=== PATIENT | female | born 1965 | race Caucasian/White ===

== ENCOUNTER 2020-12-23 11:00 | Emergency (ER) | payer OTHER ==
[2020-12-23 11:22] VITALS: TEMP 98.4
[2020-12-23 11:48] LABS: Basophils # (A) 0.1 k/uL (0-0.2); Basophils % (A) 1 %; Eosinophils # (A) 0.1 k/uL (0-0.7); Eosinophils % (A) 2 %; HCT 46.2 % (34.0-46.0); HGB 15.7 gm/dL (11.4-16.0); Lymphocytes # (A) 1.6 k/uL (1.0-4.8); Lymphocytes % (A) 26 %; MCH 31.4 pg (25.0-35.0); MCHC 33.9 g/dL (31.0-37.0); MCV 92.6 fL (80.0-100.0); Mean Platelet Volume 7.8; Monocytes # (A) 0.2 k/uL (0-1.0); Monocytes % (A) 4 %; Neutrophils % (A) 66 %; Platelet Count 303 k/uL (150-450); RBC 4.99 m/uL (3.80-5.40); RDW 13.3 % (11.5-15.5)
[2020-12-23] MEDS ORDERED: ONDANSETRON 4 MG/2 ML VIAL IVP STA (11:50)
[2020-12-23] MEDS ORDERED: MORPHINE SULFATE 4 MG/ML SYRINGE IV STA (11:50)
[2020-12-23] MEDS ORDERED: SODIUM CHLORIDE 0.9% 1,000 ML IV STA (11:50)
[2020-12-23 11:55] LABS: ALT 28 U/L (4-34); AST 33 U/L (14-36); African American GFR (CKD) >90 (>60 ml/min/1.73 sqM); Alkaline Phosphatase 113 U/L (38-126); Anion Gap 9 mmol/L; Blood Urea Nitrogen 13 mg/dL (7-17); Calcium 11.7 mg/dL (8.4-10.2); Carbon Dioxide 20 mmol/L (22-30); Chloride 109 mmol/L (98-107); Glucose 108 mg/dL (74-99); Lipase 209 U/L (23-300); Non-African American GFR(CKD) >90 (>60 ml/min/1.73 sqM); Potassium 4.9 mmol/L (3.5-5.1); Sodium 138 mmol/L (137-145); Total Bilirubin 0.4 mg/dL (0.2-1.3)
--- NOTE | 2020-12-23 11:57 | ED ---
General Adult HPI - General Chief complaint: Abdominal Pain Stated complaint: Kidney Stones Time Seen by Provider: 12/23/20 11:28 Source: patient Mode of arrival: ambulatory Limitations: no limitations - History of Present Illness Initial comments: Dictation was produced using [employer] dictation software. please excuse any grammatical, word or spelling errors. Chief Complaint: 55-year-old female presents with suprapubic pain and urinary symptoms History of Present Illness: 55-year-old female she states for the last 7 days she's had suprapubic pain, flank pain and urinary symptoms. Patient states that she does not get UTIs often. States that she does have some burning on urination. She also has urinary hesitancy and frequency. Patient was seen for similar issues in [place] emergency room. No recent antibiotics. Denies any constitutional symptoms. Mild nausea no vomiting. She has a history of total hysterectomy The ROS documented in this emergency department record has been reviewed and confirmed by me. Those systems with pertinent positive or negative responses have been documented in the HPI. All other systems are other negative and/or noncontributory. PHYSICAL EXAM: General Impression: Alert and oriented x3, not in acute distress HEENT: Normocephalic atraumatic, extra-ocular movements intact, pupils equal and reactive to light bilaterally, mucous membranes moist. Cardiovascular: Heart regular rate and rhythm Chest: Able to complete full sentences, no retractions, no tachypnea Abdomen: abdomen soft, mild tenderness to the suprapubic area, no CVA tenderness, non-distended, no organomegaly Musculoskeletal: Pulses present and equal in all extremities, no peripheral edema Motor: no focal deficits noted Neurological: CN II-XII grossly intact, no focal motor or sensory deficits noted Skin: Intact with no visualized rashes Psych: Normal affect and mood ED course: 55-year-old female presents to the emergency department for suprapubic pain and urinary symptoms. Vital signs upon arrival shows findings within acceptable limits. Laboratory evaluation obtained. CBC, metabolic panel is unremarkable. Abdominal labs negative. Urinalysis is negative. Patient reevaluated at bedside at 1 PM found to be in stable medical condition. Patient is well- appearing at the bedside. No life-threatening processes identified. Patient given referral to primary care doctor in general surgeon. Patient told that she may benefit from outpatient exploratory laparoscopy. - Related Data Allergies Allergy/AdvReac Type Severity Reaction Status Date / Time aspirin Allergy Anaphylaxis Verified 12/23/20 11:19 ibuprofen [From Motrin] Allergy Anaphylaxis Verified 12/23/20 11:19 naproxen Allergy Anaphylaxis Verified 12/23/20 11:19 Review of Systems ROS Statement: Those systems with pertinent positive or pertinent negative responses have been documented in the HPI. ROS Other: All systems not noted in ROS Statement are negative. Past Medical History Additional Past Medical History / Comment(s): kidney stones History of Any Multi-Drug Resistant Organisms: None Reported Past Surgical History: Section, Hysterectomy, Tubal Ligation Additional Past Surgical History / Comment(s): 14 laproscopies Past Psychological History: Bipolar Smoking Status: Current every day smoker Past Alcohol Use History: None Reported Past Drug Use History: None Reported General Exam Limitations: no limitations Course Vital Signs 12/23/20 11:19 Temperature 98.4 F Pulse Rate 105 H Respiratory 18 Rate Blood Pressure 164/124 O2 Sat by Pulse 97 Oximetry Medical Decision Making - Lab Data Result diagrams: 12/23/20 11:38 12/23/20 11:38 Lab Results 12/23/20 12/23/20 12/23/20 Range/Units 11:38 11:38 11:38 WBC 6.0 (3.8-10.6) k/uL RBC 4.99 (3.80-5.40) m/uL Hgb 15.7 (11.4-16.0) gm/dL Hct 46.2 H (34.0-46.0) % MCV 92.6 (80.0-100.0) fL MCH 31.4 (25.0-35.0) pg MCHC 33.9 (31.0-37.0) g/dL RDW 13.3 (11.5-15.5) % Plt Count 303 (150-450) k/uL MPV 7.8 Neutrophils % 66 % Lymphocytes % 26 % Monocytes % 4 % Eosinophils % 2 % Basophils % 1 % Neutrophils # 4.0 (1.3-7.7) k/uL Lymphocytes # 1.6 (1.0-4.8) k/uL Monocytes # 0.2 (0-1.0) k/uL Eosinophils # 0.1 (0-0.7) k/uL Basophils # 0.1 (0-0.2) k/uL Sodium 138 (137-145) mmol/L Potassium 4.9 (3.5-5.1) mmol/L Chloride 109 H (98-107) mmol/L Carbon Dioxide 20 L (22-30) mmol/L Anion Gap 9 mmol/L BUN 13 (7-17) mg/dL Creatinine 0.74 (0.52-1.04) mg/dL Est GFR (CKD-EPI)AfAm >90 (>60 ml/min/1.73 sqM) Est GFR (CKD-EPI)NonAf >90 (>60 ml/min/1.73 sqM) Glucose 108 H (74-99) mg/dL Calcium 11.7 H (8.4-10.2) mg/dL Total Bilirubin 0.4 (0.2-1.3) mg/dL AST 33 (14-36) U/L ALT 28 (4-34) U/L Alkaline Phosphatase 113 (38-126) U/L Total Protein 8.0 (6.3-8.2) g/dL Albumin 5.0 (3.5-5.0) g/dL Lipase 209 (23-300) U/L Urine Color Yellow Urine Appearance Turbid H (Clear) Urine pH 7.5 (5.0-8.0) Ur Specific [place] 1.018 (1.001-1.035) Urine Protein Negative (Negative) Urine Glucose (UA) Negative (Negative) Urine Ketones Negative (Negative) Urine Blood Negative (Negative) Urine Nitrite Negative (Negative) Urine Bilirubin Negative (Negative) Urine Urobilinogen <2.0 (<2.0) mg/dL Ur Leukocyte Esterase Negative (Negative) Urine RBC 2 (0-5) /hpf Amorphous Sediment Moderate H (None) /hpf Urine Mucus Rare H (None) /hpf Disposition Clinical Impression: Abdominal pain Disposition: HOME SELF-CARE Condition: Good Instructions (If sedation given, give patient instructions): Abdominal Pain (ED) Is patient prescribed a controlled substance at d/c from ED?: No Referrals: Tamy Crews MD [STAFF PHYSICIAN] - 1-2 days Modesto Kwong MD [Medical Doctor] - 1-2 days
[2020-12-23 12:02] LABS: Amorphous Sediment,Urine Moderate /hpf; Appearance,Urine Turbid (Clear); Bilirubin,Urine Negative (Negative); Blood,Urine Negative (Negative); Color,Urine Yellow; Glucose,Urine (UA) Negative (Negative); Ketones,Urine Negative (Negative); Leukocyte Esterase,Urine Negative (Negative); Mucus,Urine Rare /hpf; Nitrite,Urine Negative (Negative); PH, Urine 7.5 (5.0-8.0); Protein,Urine Negative (Negative); RBC,Urine 2 /hpf (0-5); Specific Gravity,Urine 1.018 (1.001-1.035); Urobilinogen,Urine <2.0 mg/dL (<2.0)
[2020-12-23] MEDS ORDERED: HYDROmorphone 0.5 MG/0.5 ML SYRINGE IVP STA (12:50)
[2020-12-23] MEDS ORDERED: ACET/COD 300 MG/30 MG STARTER PACK 6 TAB BTL PO STA (13:21)
[2020-12-23 13:30] VITALS: BP 139/92; PULSE 71; RESP 16
== END 2020-12-23 13:30 | disposition home or self-care (01) ==
LOC: EC 11:00
DX: R10.2 Pelvic and perineal pain (principal); R11.0 Nausea; R39.11 Hesitancy of micturition; R35.0 Frequency of micturition; F17.200 Nicotine dependence, unspecified, uncomplicated; Z87.442 Personal history of urinary calculi; Z88.6 Allergy status to analgesic agent; Z90.710 Acquired absence of both cervix and uterus
CPT/HCPCS: 99284 ×2; 96374 ×2; 96375 ×2; 96361 ×2; 36415; 80053; 83690; 85025; 81001; J2270; J2405; J1170

== ENCOUNTER 2021-05-22 09:13 | Emergency (ER) | payer OTHER ==
--- NOTE | 2021-05-22 09:42 | ED ---
General Adult HPI - General Chief complaint: Abdominal Pain Stated complaint: Abd pain Time Seen by Provider: 05/22/21 09:19 Source: patient Mode of arrival: ambulatory Limitations: no limitations - History of Present Illness Initial comments: Dictation was produced using [employer] dictation software. please excuse any grammatical, word or spelling errors. Chief Complaint: 55-year-old female past medical history of kidney stones presen ts to the emergency department for dysuria and right-sided flank pain History of Present Illness: 55-year-old female she has past medical history of hysterectomy. She states over the last several days she's been having urinary symptoms including urinary hesitancy, urgency and dysuria. She states that her urine is malodorous. She does have mild right-sided flank pain. Patient states she is not sexually active. Patient never had a UTI in the past. Denies any vaginal discharge. No constitutional symptoms. she has history of total abdominal hysterectomy and bilateral salpingectomy and ooophorectomy The ROS documented in this emergency department record has been reviewed and confirmed by me. Those systems with pertinent positive or negative responses have been documented in the HPI. All other systems are other negative and/or noncontributory. PHYSICAL EXAM: General Impression: Alert and oriented x3, not in acute distress HEENT: Normocephalic atraumatic, extra-ocular movements intact, pupils equal and reactive to light bilaterally, mucous membranes moist. Cardiovascular: Heart regular rate and rhythm Chest: Able to complete full sentences, no retractions, no tachypnea Abdomen: abdomen soft, non-tender, non-distended, no organomegaly Musculoskeletal: Pulses present and equal in all extremities, no peripheral edema Motor: no focal deficits noted Neurological: CN II-XII grossly intact, no focal motor or sensory deficits noted Skin: Intact with no visualized rashes Psych: Normal affect and mood ED course: 55-year-old female presents emergency department for urinary sy mptoms. Vital Signs upon arrival are within acceptable limits. Postvoid residual is 60 mL a urine Laboratory evaluation obtained. CBC, metabolic panel is unremarkable. Urinalysis negative for urinary tract infection. Pelvic exam performed showing some erythema and cheesy white discharge. It was not malodorous. Clinical presentation concerning for yeast vaginitis. Patient given 1 dose of Diflucan. She is given some by mouth analgesia is to go home with advised to follow-up with PCP. She is given referral. - Related Data Home Medications Medication Instructions Recorded Confirmed Acetaminophen Tab [Tylenol] 325 mg PO Q4H PRN 05/22/21 05/22/21 Allergies Allergy/AdvReac Type Severity Reaction Status Date / Time aspirin Allergy Anaphylaxis Verified 05/22/21 10:16 ibuprofen [From Motrin] Allergy Anaphylaxis Verified 05/22/21 10:16 naproxen Allergy Anaphylaxis Verified 05/22/21 10:16 Review of Systems ROS Statement: Those systems with pertinent positive or pertinent negative responses have been documented in the HPI. ROS Other: All systems not noted in ROS Statement are negative. Past Medical History Additional Past Medical History / Comment(s): kidney stones History of Any Multi-Drug Resistant Organisms: None Reported Past Surgical History: Section, Hysterectomy, Tubal Ligation Additional Past Surgical History / Comment(s): 14 laproscopies Past Psychological History: Bipolar Smoking Status: Current every day smoker Past Alcohol Use History: Occasional Past Drug Use History: None Reported General Exam Limitations: no limitations Course Vital Signs 05/22/21 05/22/21 05/22/21 09:16 10:06 11:33 Temperature 98.4 F 97.9 F Pulse Rate 87 79 Respiratory 20 14 Rate Blood Pressure 186/107 185/119 170/92 O2 Sat by Pulse 98 97 Oximetry Medical Decision Making - Lab Data Result diagrams: 05/22/21 10:05 05/22/21 10:05 Lab Results 05/22/21 05/22/21 05/22/21 Range/Units 10:05 10:05 11:33 WBC 5.5 (3.8-10.6) k/uL RBC 4.77 (3.80-5.40) m/uL Hgb 15.3 (11.4-16.0) gm/dL Hct 46.2 H (34.0-46.0) % MCV 96.9 (80.0-100.0) fL MCH 32.1 (25.0-35.0) pg MCHC 33.2 (31.0-37.0) g/dL RDW 13.3 (11.5-15.5) % Plt Count 288 (150-450) k/uL MPV 7.5 Neutrophils % 67 % Lymphocytes % 25 % Monocytes % 4 % Eosinophils % 1 % Basophils % 1 % Neutrophils # 3.7 (1.3-7.7) k/uL Lymphocytes # 1.4 (1.0-4.8) k/uL Monocytes # 0.2 (0-1.0) k/uL Eosinophils # 0.1 (0-0.7) k/uL Basophils # 0.1 (0-0.2) k/uL Sodium 138 (137-145) mmol/L Potassium 4.3 (3.5-5.1) mmol/L Chloride 107 (98-107) mmol/L Carbon Dioxide 22 (22-30) mmol/L Anion Gap 9 mmol/L BUN 16 (7-17) mg/dL Creatinine 0.76 (0.52-1.04) mg/dL Est GFR (CKD-EPI)AfAm >90 (>60 ml/min/1.73 sqM) Est GFR (CKD-EPI)NonAf >90 (>60 ml/min/1.73 sqM) Glucose 118 H (74-99) mg/dL Calcium 11.6 H (8.4-10.2) mg/dL Urine Color Yellow Urine Appearance Clear (Clear) Urine pH 6.0 (5.0-8.0) Ur Specific [place] 1.022 (1.001-1.035) Urine Protein Negative (Negative) Urine Glucose (UA) Negative (Negative) Urine Ketones Negative (Negative) Urine Blood Negative (Negative) Urine Nitrite Negative (Negative) Urine Bilirubin Negative (Negative) Urine Urobilinogen <2.0 (<2.0) mg/dL Ur Leukocyte Esterase Negative (Negative) Disposition Clinical Impression: Yeast vaginitis Disposition: HOME SELF-CARE Condition: Fair Instructions (If sedation given, give patient instructions): Vaginitis (ED) Is patient prescribed a controlled substance at d/c from ED?: No Referrals: Tamy Crews MD [STAFF PHYSICIAN] - 1-2 days
[2021-05-22 10:13] VITALS: PULSE 79; RESP 14; TEMP 97.9
[2021-05-22 10:15] LABS: Basophils # (A) 0.1 k/uL (0-0.2); Basophils % (A) 1 %; Eosinophils # (A) 0.1 k/uL (0-0.7); Eosinophils % (A) 1 %; HCT 46.2 % (34.0-46.0); HGB 15.3 gm/dL (11.4-16.0); Lymphocytes # (A) 1.4 k/uL (1.0-4.8); Lymphocytes % (A) 25 %; MCH 32.1 pg (25.0-35.0); MCHC 33.2 g/dL (31.0-37.0); MCV 96.9 fL (80.0-100.0); Mean Platelet Volume 7.5; Monocytes # (A) 0.2 k/uL (0-1.0); Monocytes % (A) 4 %; Neutrophils # (A) 3.7 k/uL (1.3-7.7); Neutrophils % (A) 67 %; Platelet Count 288 k/uL (150-450); RBC 4.77 m/uL (3.80-5.40); RDW 13.3 % (11.5-15.5); WBC 5.5 k/uL (3.8-10.6)
[2021-05-22 10:28] LABS: African American GFR (CKD) >90 (>60 ml/min/1.73 sqM); Anion Gap 9 mmol/L; Blood Urea Nitrogen 16 mg/dL (7-17); Calcium 11.6 mg/dL (8.4-10.2); Carbon Dioxide 22 mmol/L (22-30); Chloride 107 mmol/L (98-107); Glucose 118 mg/dL (74-99); Non-African American GFR(CKD) >90 (>60 ml/min/1.73 sqM); Potassium 4.3 mmol/L (3.5-5.1); Sodium 138 mmol/L (137-145)
[2021-05-22] MEDS ORDERED: SODIUM CHLORIDE 0.9% 1,000 ML IV STA (10:42)
[2021-05-22] MEDS ORDERED: MORPHINE SULFATE 4 MG/ML SYRINGE IVP STA (10:42)
[2021-05-22 11:34] VITALS: BP 170/92
[2021-05-22 11:37] LABS: Appearance,Urine Clear (Clear); Bilirubin,Urine Negative (Negative); Blood,Urine Negative (Negative); Color,Urine Yellow; Glucose,Urine (UA) Negative (Negative); Ketones,Urine Negative (Negative); Leukocyte Esterase,Urine Negative (Negative); Nitrite,Urine Negative (Negative); Protein,Urine Negative (Negative); Specific Gravity,Urine 1.022 (1.001-1.035); Urobilinogen,Urine <2.0 mg/dL (<2.0)
[2021-05-22] MEDS ORDERED: FLUCONAZOLE 150 MG TAB PO STA (12:21)
[2021-05-22] MEDS ORDERED: ACET/COD 300 MG/30 MG STARTER PACK 6 TAB BTL PO STA (12:22)
== END 2021-05-22 13:41 | disposition home or self-care (01) ==
LOC: EC 09:13
DX: B37.3 Candidiasis of vulva and vagina (principal); F17.200 Nicotine dependence, unspecified, uncomplicated; Z88.6 Allergy status to analgesic agent
CPT/HCPCS: 36415; 80048; 85025; 81003; 99284; 96374; 96361; J2270

== ENCOUNTER 2021-08-02 13:23 | Emergency (ER) | payer OTHER ==
[2021-08-02 14:00] VITALS: BP 157/103; PULSE 98; RESP 18; TEMP 98.4
--- NOTE | 2021-08-02 14:29 | XR ---
EXAMINATION TYPE: XR chest 2V DATE OF EXAM: 08/02/2021 COMPARISON: NONE HISTORY: Shortness of breath TECHNIQUE: Frontal and lateral views of the chest are obtained. FINDINGS: Scattered senescent parenchymal changes noted. Hyperinflation compatible with COPD. No evidence for infiltrate. No evidence for atelectasis. Heart size is stable. Mediastinal structures are stable and grossly unremarkable. No evidence for hilar prominence. Degenerative changes dorsal spine. IMPRESSION: 1. No evidence for acute pulmonary disease.
--- NOTE | 2021-08-02 14:29 | ED ---
URI HPI - General Chief Complaint: Upper Respiratory Infection Stated Complaint: Asthma, YOSELYN Time Seen by Provider: 08/02/21 14:06 Source: patient, RN notes reviewed Mode of arrival: ambulatory Limitations: no limitations - History of Present Illness Initial Comments: 55-year-old female presents emergency Department chief complaint cough congestion. Patient states she's been sick last few days. Patient states that she does have slight nausea and does have productive cough. Patient has meant she has asthma COPD. Patient states her medication is old for her nebulizer. Patient denies any known fevers chills no night sweats no sick contacts patient offers no complaints. - Related Data Home Medications Medication Instructions Recorded Confirmed Acetaminophen Tab [Tylenol] 325 mg PO Q4H PRN 05/22/21 05/22/21 Previous Rx's Medication Instructions Recorded Albuterol Nebulized [Ventolin 2.5 mg INHALATION Q4H PRN #75 ml 08/02/21 Nebulized] Albuterol Sulfate [Proair Hfa] 1 - 2 puff INHALATION Q4HR PRN 08/02/21 #8.5 gm Azithromycin [Zithromax Z-pack (6 0 mg PO DIRECTED #1 packet 08/02/21 tabs)] predniSONE 50 mg PO DAILY #5 tab 08/02/21 Allergies Allergy/AdvReac Type Severity Reaction Status Date / Time aspirin Allergy Anaphylaxis Verified 08/02/21 14:00 ibuprofen [From Motrin] Allergy Anaphylaxis Verified 08/02/21 14:00 naproxen Allergy Anaphylaxis Verified 08/02/21 14:00 Review of Systems ROS Statement: Those systems with pertinent positive or pertinent negative responses have been documented in the HPI. ROS Other: All systems not noted in ROS Statement are negative. Past Medical History Additional Past Medical History / Comment(s): kidney stones History of Any Multi-Drug Resistant Organisms: None Reported Past Surgical History: Section, Hysterectomy, Tubal Ligation Additional Past Surgical History / Comment(s): 14 laproscopies Past Psychological History: Bipolar Smoking Status: Current every day smoker Past Alcohol Use History: Occasional Past Drug Use History: None Reported General Exam Limitations: no limitations General appearance: alert, in no apparent distress Head exam: Present: atraumatic, normocephalic, normal inspection Eye exam: Present: normal appearance, PERRL, EOMI. Absent: scleral icterus, conjunctival injection, periorbital swelling ENT exam: Present: normal exam, mucous membranes moist Neck exam: Present: normal inspection. Absent: tenderness, meningismus, lymphadenopathy Respiratory exam: Present: wheezes, rhonchi. Absent: normal lung sounds bilaterally, respiratory distress, rales, stridor Cardiovascular Exam: Present: regular rate, normal rhythm, normal heart sounds. Absent: systolic murmur, diastolic murmur, rubs, gallop, clicks GI/Abdominal exam: Present: soft, normal bowel sounds. Absent: distended, tenderness, guarding, rebound, rigid Course Vital Signs 08/02/21 13:58 Temperature 98.4 F Pulse Rate 98 Respiratory 18 Rate Blood Pressure 157/103 O2 Sat by Pulse 97 Oximetry Medical Decision Making - Medical Decision Making X-ray, influenza testing and COVID-19 testing are negative. Patient has mild COPD exacerbation patient discharged with steroids,] breathing treatments return parameters discussed. - Lab Data Lab Results 08/02/21 08/02/21 Range/Units 14:03 14:03 Coronavirus (PCR) Not Detected (Not Detectd) Influenza Type A RNA Not Detected (Not Detectd) Influenza Type B (PCR) Not Detected (Not Detectd) Disposition Clinical Impression: Asthmatic bronchitis, Acute upper respiratory infection Disposition: HOME SELF-CARE Condition: Stable Instructions (If sedation given, give patient instructions): Upper Respiratory Infection (ED) Additional Instructions: Please return to the Emergency Department if symptoms worsen or any other concerns. Prescriptions: predniSONE 50 mg PO DAILY #5 tab Albuterol Sulfate [Proair Hfa] 1 - 2 puff INHALATION Q4HR PRN #8.5 gm PRN Reason: difficulty in breathing Albuterol Nebulized [Ventolin Nebulized] 2.5 mg INHALATION Q4H PRN #75 ml PRN Reason: difficulty in breathing Azithromycin [Zithromax Z-pack (6 tabs)] 0 mg PO DIRECTED #1 packet Is patient prescribed a controlled substance at d/c from ED?: No Referrals: None,Stated [Primary Care Provider] - 1-2 days Time of Disposition: 14:36
== END 2021-08-02 15:01 | disposition home or self-care (01) ==
LOC: EC 13:23
DX: J45.909 Unspecified asthma, uncomplicated (principal); J06.9 Acute upper respiratory infection, unspecified; F17.200 Nicotine dependence, unspecified, uncomplicated; Z20.822 Contact with and (suspected) exposure to COVID-19; Z88.6 Allergy status to analgesic agent
CPT/HCPCS: 71046; 87502; 87635; 99284

== ENCOUNTER 2021-10-04 13:17 | Inpatient (IN) | payer OTHER ==
[2021-10-04] MEDS ORDERED: SODIUM CHLORIDE 0.9% 1,000 ML IV STA (14:16)
[2021-10-04] MEDS ORDERED: diphenhydrAMINE 50 MG/ML 1 ML VIAL IVP STA (14:17)
[2021-10-04] MEDS ORDERED: METOCLOPRAMIDE 5 MG/ML 2 ML VIAL IVP STA (14:17)
[2021-10-04 14:37] LABS: Basophils # (A) 0.1 k/uL (0-0.2); Basophils % (A) 2 %; Eosinophils # (A) 0.1 k/uL (0-0.7); Eosinophils % (A) 2 %; HCT 40.5 % (34.0-46.0); HGB 13.4 gm/dL (11.4-16.0); Lymphocytes # (A) 1.4 k/uL (1.0-4.8); Lymphocytes % (A) 29 %; MCH 31.9 pg (25.0-35.0); MCHC 33.2 g/dL (31.0-37.0); MCV 96.2 fL (80.0-100.0); Mean Platelet Volume 7.5; Monocytes # (A) 0.3 k/uL (0-1.0); Monocytes % (A) 5 %; Neutrophils # (A) 2.9 k/uL (1.3-7.7); Neutrophils % (A) 61 %; Platelet Count 271 k/uL (150-450); RDW 12.9 % (11.5-15.5); WBC 4.8 k/uL (3.8-10.6)
--- NOTE | 2021-10-04 14:42 | ED ---
General Adult HPI - General Chief complaint: Headache Stated complaint: Migraine/Syncope Time Seen by Provider: 10/04/21 14:00 Source: patient, RN notes reviewed Mode of arrival: ambulatory Limitations: no limitations - History of Present Illness Initial comments: Patient is a pleasant 55-year-old female presenting to the emergency Department with headache. Onset of symptoms was around 10 days ago. Gradual onset. Headache is now becoming severe. Headache is diffuse. Patient does have nausea and has vomited several times. Patient has photophobia. No history of chronic headaches. Patient believes she has had possibly several episodes of syncope associated with this. Patient feels a little bit off balance. - Related Data Home Medications Medication Instructions Recorded Confirmed Acetaminophen Tab [Tylenol Tab] 1,000 mg PO Q6HR PRN 10/04/21 10/04/21 Albuterol Nebulized [Ventolin 2.5 mg INHALATION RT-Q4H PRN 10/04/21 10/04/21 Nebulized] Albuterol Sulfate [Proair Hfa] 1 - 2 puff INHALATION RT-Q4H PRN 10/04/21 10/04/21 Allergies Allergy/AdvReac Type Severity Reaction Status Date / Time aspirin Allergy Anaphylaxis Verified 10/04/21 16:39 ibuprofen [From Motrin] Allergy Anaphylaxis Verified 10/04/21 16:39 naproxen Allergy Anaphylaxis Verified 10/04/21 16:39 Review of Systems ROS Statement: Those systems with pertinent positive or pertinent negative responses have been documented in the HPI. ROS Other: All systems not noted in ROS Statement are negative. Constitutional: Denies: fever Eyes: Reports: other (Some blurred vision). Denies: eye pain ENT: Denies: ear pain Respiratory: Denies: cough, dyspnea Cardiovascular: Denies: chest pain Endocrine: Denies: fatigue Gastrointestinal: Reports: nausea, vomiting. Denies: abdominal pain Genitourinary: Denies: dysuria Musculoskeletal: Denies: back pain Skin: Denies: rash Neurological: Reports: headache. Denies: weakness, numbness, paresthesias, conf usion Past Medical History Additional Past Medical History / Comment(s): kidney stones History of Any Multi-Drug Resistant Organisms: None Reported Past Surgical History: Section, Hysterectomy, Tubal Ligation Additional Past Surgical History / Comment(s): 14 laproscopies Past Psychological History: Bipolar Smoking Status: Current every day smoker Past Alcohol Use History: Occasional Past Drug Use History: None Reported General Exam Limitations: no limitations General appearance: alert, in no apparent distress Head exam: Present: normocephalic Eye exam: Present: normal appearance, PERRL, EOMI ENT exam: Present: normal oropharynx Neck exam: Present: normal inspection Respiratory exam: Present: normal lung sounds bilaterally Cardiovascular Exam: Present: regular rate, normal rhythm GI/Abdominal exam: Present: soft. Absent: tenderness Extremities exam: Present: normal inspection Neurological exam: Present: alert, oriented X3, CN II-XII intact. Absent: motor sensory deficit Expanded Neurological exam: Present: protecting the airway Speech: Present: fluid speech Cranial nerves: EOM's Intact: Normal, Facial Sensation: Normal Sensory exam: Upper Extremity Light Touch: Normal, Lower Extremity Light Touch: Normal Motor strength exam: RUE: 5, LUE: 5, RLE: 5, LLE: 5 Eye Response: (4) open spontaneously Motor Response: (6) obeys commands Verbal Response: (5) oriented Psychiatric exam: Present: normal affect, normal mood Skin exam: Present: normal color Course Vital Signs 10/04/21 13:17 Temperature 98.7 F Pulse Rate 89 Respiratory 18 Rate Blood Pressure 163/110 O2 Sat by Pulse 98 Oximetry Medical Decision Making - Medical Decision Making Patient reevaluated. Patient does have improvement of her symptoms. Patient updated on results and plan. Case discussed with Dr. Vega, who will admit c [facility] observation call. - Lab Data Result diagrams: 10/04/21 14:24 10/04/21 14:24 Lab Results 10/04/21 10/04/21 10/04/21 Range/Units 14:24 14:24 14:24 WBC 4.8 (3.8-10.6) k/uL RBC 4.20 (3.80-5.40) m/uL Hgb 13.4 (11.4-16.0) gm/dL Hct 40.5 (34.0-46.0) % MCV 96.2 (80.0-100.0) fL MCH 31.9 (25.0-35.0) pg MCHC 33.2 (31.0-37.0) g/dL RDW 12.9 (11.5-15.5) % Plt Count 271 (150-450) k/uL MPV 7.5 Neutrophils % 61 % Lymphocytes % 29 % Monocytes % 5 % Eosinophils % 2 % Basophils % 2 % Neutrophils # 2.9 (1.3-7.7) k/uL Lymphocytes # 1.4 (1.0-4.8) k/uL Monocytes # 0.3 (0-1.0) k/uL Eosinophils # 0.1 (0-0.7) k/uL Basophils # 0.1 (0-0.2) k/uL PT 10.1 (9.0-12.0) sec INR 0.9 (<1.2) APTT 26.2 (22.0-30.0) sec Sodium 138 (137-145) mmol/L Potassium 4.1 (3.5-5.1) mmol/L Chloride 109 H (98-107) mmol/L Carbon Dioxide 22 (22-30) mmol/L Anion Gap 7 mmol/L BUN 18 H (7-17) mg/dL Creatinine 0.69 (0.52-1.04) mg/dL Est GFR (CKD-EPI)AfAm >90 (>60 ml/min/1.73 sqM) Est GFR (CKD-EPI)NonAf >90 (>60 ml/min/1.73 sqM) Glucose 93 (74-99) mg/dL Calcium 10.8 H (8.4-10.2) mg/dL Magnesium 2.0 (1.6-2.3) mg/dL Total Bilirubin 0.3 (0.2-1.3) mg/dL AST 26 (14-36) U/L ALT 21 (4-34) U/L Alkaline Phosphatase 109 (38-126) U/L Troponin I (0.000-0.034) ng/mL Total Protein 7.1 (6.3-8.2) g/dL Albumin 4.4 (3.5-5.0) g/dL Urine Color Urine Appearance (Clear) Urine pH (5.0-8.0) Ur Specific [place] (1.001-1.035) Urine Protein (Negative) Urine Glucose (UA) (Negative) Urine Ketones (Negative) Urine Blood (Negative) Urine Nitrite (Negative) Urine Bilirubin (Negative) Urine Urobilinogen (<2.0) mg/dL Ur Leukocyte Esterase (Negative) 10/04/21 10/04/21 Range/Units 14:24 14:32 WBC (3.8-10.6) k/uL RBC (3.80-5.40) m/uL Hgb (11.4-16.0) gm/dL Hct (34.0-46.0) % MCV (80.0-100.0) fL MCH (25.0-35.0) pg MCHC (31.0-37.0) g/dL RDW (11.5-15.5) % Plt Count (150-450) k/uL MPV Neutrophils % % Lymphocytes % % Monocytes % % Eosinophils % % Basophils % % Neutrophils # (1.3-7.7) k/uL Lymphocytes # (1.0-4.8) k/uL Monocytes # (0-1.0) k/uL Eosinophils # (0-0.7) k/uL Basophils # (0-0.2) k/uL PT (9.0-12.0) sec INR (<1.2) APTT (22.0-30.0) sec Sodium (137-145) mmol/L Potassium (3.5-5.1) mmol/L Chloride (98-107) mmol/L Carbon Dioxide (22-30) mmol/L Anion Gap mmol/L BUN (7-17) mg/dL Creatinine (0.52-1.04) mg/dL Est GFR (CKD-EPI)AfAm (>60 ml/min/1.73 sqM) Est GFR (CKD-EPI)NonAf (>60 ml/min/1.73 sqM) Glucose (74-99) mg/dL Calcium (8.4-10.2) mg/dL Magnesium (1.6-2.3) mg/dL Total Bilirubin (0.2-1.3) mg/dL AST (14-36) U/L ALT (4-34) U/L Alkaline Phosphatase (38-126) U/L Troponin I <0.012 (0.000-0.034) ng/mL Total Protein (6.3-8.2) g/dL Albumin (3.5-5.0) g/dL Urine Color Light Yellow Urine Appearance Clear (Clear) Urine pH 6.0 (5.0-8.0) Ur Specific [place] 1.023 (1.001-1.035) Urine Protein Negative (Negative) Urine Glucose (UA) Negative (Negative) Urine Ketones Negative (Negative) Urine Blood Negative (Negative) Urine Nitrite Negative (Negative) Urine Bilirubin Negative (Negative) Urine Urobilinogen <2.0 (<2.0) mg/dL Ur Leukocyte Esterase Negative (Negative) - Radiology Data Radiology results: report reviewed (CT brain and CTA revealed no acute process), image reviewed (Chest x-ray shows no acute process) Disposition Clinical Impression: Headache, Syncope Disposition: ADMITTED IP TO THIS HOSP Is patient prescribed a controlled substance at d/c from ED?: No Referrals: None,Stated [Primary Care Provider] - 1-2 days Time of Disposition: 16:51
[2021-10-04 14:47] LABS: ALT 21 U/L (4-34); AST 26 U/L (14-36); African American GFR (CKD) >90 (>60 ml/min/1.73 sqM); Albumin 4.4 g/dL (3.5-5.0); Alkaline Phosphatase 109 U/L (38-126); Anion Gap 7 mmol/L; Blood Urea Nitrogen 18 mg/dL (7-17); Calcium 10.8 mg/dL (8.4-10.2); Carbon Dioxide 22 mmol/L (22-30); Chloride 109 mmol/L (98-107); Glucose 93 mg/dL (74-99); Non-African American GFR(CKD) >90 (>60 ml/min/1.73 sqM); Potassium 4.1 mmol/L (3.5-5.1); Sodium 138 mmol/L (137-145); Total Bilirubin 0.3 mg/dL (0.2-1.3); Total Protein 7.1 g/dL (6.3-8.2)
[2021-10-04 14:49] LABS: INR 0.9 (<1.2); Partial Thromboplastin Time 26.2 sec (22.0-30.0); Prothrombin Time 10.1 sec (9.0-12.0)
--- NOTE | 2021-10-04 15:08 | CT ---
EXAMINATION TYPE: CT brain wo con CT DLP: 1135.6 mGycm, Automated exposure control for dose reduction was used. DATE OF EXAM: 10/04/2021 2:58 PM COMPARISON: None. CLINICAL INDICATION:Female, 55 years old with history of syncope, headache and syncope TECHNIQUE: Brain: Multiple axial CT images of the brain were obtained without IV contrast. FINDINGS: Brain: Extra-axial spaces: No abnormal extra-axial fluid collections. Ventricular system: Within normal limits Cerebral parenchyma: No acute intraparenchymal hemorrhage or mass effect. The condon-white junction is well differentiated. Cerebellum: Unremarkable. Mass effect: No evidence of midline shift. Intracranial vasculature: Atherosclerotic calcifications of the intracranial vessels. Soft tissues: Normal. Calvarium/osseous structures: No depressed skull fracture. Paranasal sinuses and mastoid air cells: Mild scattered paranasal sinus disease. Visualized orbits: Orbital contents are intact. IMPRESSION: No acute intracranial process.
--- NOTE | 2021-10-04 15:19 | XR ---
EXAMINATION TYPE: XR chest 2V DATE OF EXAM: 10/04/2021 COMPARISON: Chest x-ray 08/02/2021 HISTORY: Syncope, headache TECHNIQUE: Frontal and lateral views of the chest are obtained. FINDINGS: There is no focal air space opacity, pleural effusion, or pneumothorax seen. The cardiac silhouette size is within normal limits. Prominent lung volume may be indicative of underlying COPD. The osseous structures are intact and there is thoracic spondylosis. IMPRESSION: No acute cardiopulmonary process.
[2021-10-04 15:24] LABS: Appearance,Urine Clear (Clear); Bilirubin,Urine Negative (Negative); Blood,Urine Negative (Negative); Color,Urine Light Yellow; Glucose,Urine (UA) Negative (Negative); Ketones,Urine Negative (Negative); Leukocyte Esterase,Urine Negative (Negative); Nitrite,Urine Negative (Negative); Protein,Urine Negative (Negative); Specific Gravity,Urine 1.023 (1.001-1.035); Urobilinogen,Urine <2.0 mg/dL (<2.0)
--- NOTE | 2021-10-04 15:25 | CT ---
EXAMINATION TYPE: CT angio head neck DATE OF EXAM: 10/04/2021 HISTORY: headache and syncope COMPARISON: None. CT DLP: 419.8 mGycm. Automated Exposure Control for Dose Reduction was Utilized. TECHNIQUE: CTA scan of the head and neck is performed with IV Contrast, patient injected with 65 mL of Isovue 370, axial images are obtained, coronal and sagittal reformatted images are reviewed. 3D re constructed images are created on an independent workstation and reviewed. FINDINGS: Carotid/Vascular Structures: Normal three-vessel origin from the aortic arch . No significant focal p laque or stenosis in the common or internal carotid arteries bilaterally including a level of carotid bulbs. Patent bilateral external carotid arteries without significant plaque or stenosis. There is d ominant left vertebral artery. Vertebral arteries are patent to the basilar junction. There is no significant focal stenosis or aneu rysm in the posterior circulation. There are hypoplastic bilateral posterior communicating arteries. Anterior circulation shows close proximity to the bilateral A1 segments with likely patent small sharyn rc anterior communicating artery. No significant focal stenosis or aneurysm in the anterior circulat ion. Other: Slight dextroconvex scoliotic curvature centered mid to lower cervical spine. IMPRESSION: No significant abnormality is seen. NASCET criteria was used in interpretation of this exam?
[2021-10-04] MEDS ORDERED: ONDANSETRON 4 MG/2 ML VIAL IVP PRN (16:52)
[2021-10-04] MEDS ORDERED: NALOXONE 0.4 MG/ML 1 ML VIAL IV PRN ×2 (16:52→17:16)
[2021-10-04] MEDS ORDERED: METOCLOPRAMIDE 5 MG/ML 2 ML VIAL IVP PRN (16:53)
[2021-10-04] MEDS ORDERED: diphenhydrAMINE 50 MG/ML 1 ML VIAL IVP PRN (16:53)
[2021-10-04] MEDS ORDERED: KETOROLAC 15 MG/ML 1 ML VIAL IVP PRN (17:16)
--- NOTE | 2021-10-04 17:26 | P.HPIM ---
History of Present Illness H&P Date: 10/04/21 Chief Complaint: syncope 55-year-old female presenting to the emergency Department with headache. Onset of symptoms was around 10 days ago. Headache is diffuse, involving all of the head. It is dull, throbbing at times. Pain is associated with dizziness, feeling off balance, photophobia, tinnitus, blurred vision. Patient also reported loss of consciousness 2. She found herself on the floor without knowing how long she passed out for. She lives alone. Patient does have nausea and has vomited several times. No history of chronic headaches. In addition she noticed that she was having a mass on the left side of her posterior neck for the last [address] head and CT angio of the head and neck done in the ER were both negative. Labs unremarkable, she was admitted for further evaluation and management. Review of Systems Complete review of system was performed, pertinent positive per HPI, otherwise negative Past Medical History Additional Past Medical History / Comment(s): kidney stones History of Any Multi-Drug Resistant Organisms: None Reported Past Surgical History: Section, Hysterectomy, Tubal Ligation Additional Past Surgical History / Comment(s): 14 laproscopies Past Psychological History: Bipolar Smoking Status: Current every day smoker Past Alcohol Use History: Occasional Past Drug Use History: None Reported Medications and Allergies Home Medications Medication Instructions Recorded Confirmed Type Acetaminophen Tab [Tylenol Tab] 1,000 mg PO Q6HR PRN 10/04/21 10/04/21 History Albuterol Nebulized [Ventolin 2.5 mg INHALATION RT-Q4H PRN 10/04/21 10/04/21 History Nebulized] Albuterol Sulfate [Proair Hfa] 1 - 2 puff INHALATION RT-Q4H PRN 10/04/21 10/04/21 History Allergies Allergy/AdvReac Type Severity Reaction Status Date / Time aspirin Allergy Anaphylaxis Verified 10/04/21 16:39 ibuprofen [From Motrin] Allergy Anaphylaxis Verified 10/04/21 16:39 naproxen Allergy Anaphylaxis Verified 10/04/21 16:39 Physical Exam Vitals: Vital Signs Temp Pulse Resp BP Pulse Ox 10/04/21 13:17 98.7 F 89 18 163/110 98 Intake and Output 10/04/21 10/04/21 10/04/21 06:59 14:59 22:59 Other: Weight 63.503 kg Constitutional: No acute distress, conversant, pleasant Eyes:Anicteric sclerae, moist conjunctiva, no lid-lag, PERRLA, ENMT: Oropharynx clear, no erythema, exudates Neck: nodule felt on the left posterior side of the neck. Supple, FROM, no masses, or JVD, No carotid bruits, No thyromegaly Lungs: Clear to auscultation, Clear to percussion, Normal respiratory effort, no accessory muscle use Cardiovascular: Heart regular in rate and rhythm, No murmurs, gallops, or rubs, No peripheral edema Abdominal: Soft, Nontender, no guarding, rebound or rigidity, Normoactive bowel sounds, No hepatomegaly, No splenomegaly, No palpable mass Skin: Normal temperature, tone, texture, turgor, no induration, No subcutaneous nodules, No rash, lesions, No ulcers Extremities: No digital cyanosis, No clubbing, Pedal pulses intact and symmetrical, Radial pulses intact and symmetrical, No calf tenderness Psychiatric: Alert and oriented to person, place and time, appropriate affect, intact judgement Neuro: Muscles Strength 5/5 in all 4 extremities, Sensation to light touch grossly present throughout, Cranial nerves II-XII grossly intact, no focal sensory deficits Results CBC & Chem 7: 10/04/21 14:24 10/04/21 14:24 Labs: Abnormal Lab Results - Last 24 Hours (Table) 10/04/21 Range/Units 14:24 Chloride 109 H (98-107) mmol/L BUN 18 H (7-17) mg/dL Calcium 10.8 H (8.4-10.2) mg/dL Assessment and Plan Plan: Headaches migraine type new onset Head CT and head/neck CTA reviewed Brain mri Neuro consult Symptomatic management Syncope X2 Neuro eval Tele Neck mass CT soft tissues Smoking Advised to quit Admit to inpatient expected length of stay more than 2 midnights.
[2021-10-04 17:53] VITALS: RESP 18
[2021-10-04] MEDS: SODIUM CHLORIDE 0.9% 1,000 ML IV SCH (18:08)
[2021-10-04] MEDS: ACETAMINOPHEN TAB 325 MG TAB PO PRN (20:56)
[2021-10-04] MEDS ORDERED: traMADol 50 MG TAB PO STA (23:20)
[2021-10-04] MEDS ORDERED: ASPIRIN-ACET-CAFF 250-250-65MG 1 EACH TAB PO ONE (23:30)
[2021-10-05] MEDS: ACETAMINOPHEN TAB 325 MG TAB PO PRN ×3 (05:56→17:49)
[2021-10-05] MEDS: SODIUM CHLORIDE 0.9% 1,000 ML IV SCH (05:57)
--- NOTE | 2021-10-05 10:12 | P.CNNES ---
History of Present Illness Consult date: 10/05/21 Requesting physician: Mina Gamble Reason for Consult: migraine History of Present Illness: This is a 55-year-old woman presented emergency department because of headache. Seems the patient has been having headache for 10 days. She stated that she woke up once and she noticed that she is having generalized headache and it was severe more than 10 over 10 and constant, throbbing, she's been having nausea and vomiting. Denies any visual changes at. She denies any head trauma. Denies any focal weakness. She has been noticing numbness of bilateral hands and around the mouth. Denies any difficulty getting her words out. She denies any similar headaches like this in the past. Denies any weight loss. She noticed that that she has passed out and found herself on the floor but denies any urinary bowel incontinence or any tongue bite. She resides by herself. Denies any history of stroke, tumor. She denies any history of migraine that. She does have family history of brain aneurysm and father in his 60s to 70 years old and her grandmother had possibly a brain tumor in her 70s. Patient denies any abnormal weight loss. Currently feels the headache is at 8/10 after receiving some pain medication. She denies any fever and the rash prior to this. Some other workup in our facility consisted of: CT of the head is reported as no acute intracranial process. I personally reviewed the CT of the head and I agree with report. CT angiography of the head and neck was reported as no significant abnormality is seen Review of Systems Review of system: The 12 point system was reviewed and apparent positive and negative per HPI. Past Medical History Additional Past Medical History / Comment(s): kidney stones History of Any Multi-Drug Resistant Organisms: None Reported Past Surgical History: Section, Hysterectomy, Tubal Ligation Additional Past Surgical History / Comment(s): 14 laproscopies Past Psychological History: Bipolar Smoking Status: Current every day smoker Past Alcohol Use History: Occasional Past Drug Use History: None Reported Medications and Allergies Home Medications Medication Instructions Recorded Confirmed Type Acetaminophen Tab [Tylenol Tab] 1,000 mg PO Q6HR PRN 10/04/21 10/04/21 History Albuterol Nebulized [Ventolin 2.5 mg INHALATION RT-Q4H PRN 10/04/21 10/04/21 History Nebulized] Albuterol Sulfate [Proair Hfa] 1 - 2 puff INHALATION RT-Q4H PRN 10/04/21 10/04/21 History Allergies Allergy/AdvReac Type Severity Reaction Status Date / Time aspirin Allergy Anaphylaxis Verified 10/04/21 16:39 ibuprofen [From Motrin] Allergy Anaphylaxis Verified 10/04/21 16:39 naproxen Allergy Anaphylaxis Verified 10/04/21 16:39 Physical Examination - Vital Signs Vital Signs: Vital Signs Temp Pulse Pulse Resp BP BP Pulse Ox 10/05/21 07:00 97.8 F 61 18 136/83 98 10/05/21 02:04 97.5 F L 61 18 108/68 98 10/04/21 18:52 98.3 F 68 18 131/87 100 10/04/21 17:45 97.6 F 75 18 174/110 100 10/04/21 17:15 89 16 179/105 100 10/04/21 13:17 98.7 F 89 18 163/110 98 Intake and Output 10/04/21 10/05/21 10/05/21 22:59 06:59 14:59 Intake Total 120 480 Balance 120 480 Intake: Oral 120 480 Other: Voiding Method Toilet Toilet # Voids 2 2 Weight 63.503 kg GENERAL: The patient is lying in bed and is not in acute distress. CHEST: The heart rate is regular rate rhythm. No murmurs to auscultation. LUNG: Clear to auscultation bilaterally no wheezing noted throughout. Not labored breathing. ABDOMEN/GI: Bowel sounds present in all 4 quadrants. No tenderness to palpation throughout. NEUROLOGICAL: Higher mental function: The patient is awake, alert, oriented to self, place and time. Patient is following commands. No aphasia and no neglect. Cranial nerves: The pupils are round, equal and reactive to light and accommodation. Patient seemed to have small petichal hemorrage over the left eye over left lateral iris. Visual cruz are full to confrontation throughout. Extraocular movement is intact no nystagmus is noted. Facial sensation is normal to touch throughout. The facial strength is normal throughout. Hearing is normal bilaterally to hand rub. Tongue is midline and moved [id number] without any difficulty. No dysarthria is noted. Shoulder shrug is normal bi laterally. Motor: The strength is 5 over 5 throughout. Normal tone and bulk. Cerebellum: Normal finger to nose heel to gómez bilaterally. Sensation: Sensation is normal to touch throughout. Reflexes (right/left):2+ throughout. Plantars are downgoing bilaterally. Results - Laboratory Findings CBC and BMP: 10/04/21 14:24 10/04/21 14:24 Abnormal Lab Findings: Abnormal Labs 10/04/21 14:24 Chloride 109 H BUN 18 H Calcium 10.8 H Assessment and Plan Assessment: Acute Cephalgia for the past [address] and CTA head/neck are unremarkable. Syncopal episodes (had two episodes where she found herself on floor. No hx of seizures) Bipolar Anxiety Asthma Nicotine use Family history of brain aneurysm Plan: MRI of the brain with and without is ordered by the primary team which I agree and is pending Because of syncopal episodes I ordered a routine EEG. Continue neuro checks. I ordered TSH level, ESR, CRP. I started the patient on topamax 50mg bid which can help with headaches/migraine and has antiepileptic effect. Patient was counseled on tobacco cessation We'll defer the rest of the medical management to primary Thank you for the consultation. Osiel Samayoa M.D. Neuro-hospitalist Time with Patient: Greater than 30
[2021-10-05 10:14] LABS: Basophils # (A) 0.03 X 10*3/uL (0.00-0.10); Basophils % (A) 0.8 %; Eosinophils % (A) 2.7 %; HCT 37.3 % (37.2-46.3); HGB 11.8 g/dL (12.0-15.0); Immature Grans, Automated 0.3 %; Lymphocytes # (A) 1.79 X 10*3/uL (0.90-5.00); MCH 30.7 pg (27.0-32.0); MCHC 31.6 g/dL (32.0-37.0); MCV 97.1 fL (80.0-97.0); Mean Platelet Volume 10.7 fL (9.5-12.2); Monocytes # (A) 0.31 X 10*3/uL (0.20-1.00); Monocytes % (A) 8.3 %; NRBC Per 100 WBC 0 /100 WBCS (0.0-0.0); Neutrophils # (A) 1.49 X 10*3/uL (1.80-7.70); Neutrophils % (A) 39.9 %; Platelet Count 246 X 10*3/uL (140-440); RBC 3.84 X 10*6/uL (4.10-5.20); RDW 13.6 % (11.5-14.5); WBC 3.73 X 10*3/uL (4.50-10.00)
[2021-10-05 10:36] LABS: African American GFR (CKD) 114.6 (60.0-200.0); Albumin 3.8 g/dL (3.8-4.9); Albumin/Globulin Ratio 2.11 (1.60-3.17); Anion Gap 8.5 mmol/L (10.00-18.00); BUN/Creat Ratio 13.43 Ratio (12.00-20.00); Blood Urea Nitrogen 9.4 mg/dL (9.0-27.0); Carbon Dioxide 23.5 mmol/L (20.0-27.5); Globulin 1.8 g/dL (1.6-3.3); Non-African American GFR(CKD) 98.9 (60.0-200.0); Potassium 4.3 mmol/L (3.5-5.5); Total Bilirubin 0.2 mg/dL (0.30-1.20); Total Protein 5.6 g/dL (6.2-8.2)
--- NOTE | 2021-10-05 11:43 | CA ---
Transthoracic Echo Report Name: Jenna Conklin Age: 55 Gender: F : 1965 Exam Date: 10/05/2021 08:50 Exam Location: [facility] Ht (in): 65 Wt (lb): 140 Ordering Physician: Yaritza Vega DO Attending/Referring Phys: [id number], Silvia Senior Policy Analyst Tarsha Carnes, RDROGERIO Procedure CPT: Indications: Syncope Cardiac Hx: Technical Quality: Contrast 1: Total Dose (mL): Contrast 2: Total Dose (mL): MEASUREMENTS (Male / Female) Normal Values 2D ECHO LV Diastolic Diameter PLAX 4.4 cm 4.2 - 5.9 / 3.9 - 5.3 cm LV Systolic Diameter PLAX 3.2 cm IVS Diastolic Thickness 1.1 cm 0.6 - 1.0 / 0.6 - 0.9 cm LVPW Diastolic Thickness 1.2 cm 0.6 - 1.0 / 0.6 - 0.9 cm LV Relative Wall Thickness 0.5 RV Internal Dim ED PLAX 2.6 cm LA Systolic Diameter LX 3.3 cm 3.0 - 4.0 / 2.7 - 3.8 cm M-MODE Aortic Root Diameter MM 2.7 cm LA Systolic Diameter MM 3.3 cm LA Ao Ratio MM 1.2 MV E Point Septal Separation 0.5 cm AV Cusp Separation MM 1.6 cm DOPPLER MV Area PHT 5.0 cm??? Mitral E Point Velocity 71.9 cm/s Mitral A Point Velocity 77.1 cm/s Mitral E to A Ratio 0.9 MV Deceleration Time 153.1 ms MV E' Velocity 7.5 cm/s Mitral E to MV E' Ratio 9.6 FINDINGS Left Ventricle Normal left ventricular size, mild wall thickness, systolic function with no obvious regional wall motion abnormalities. The ejection fraction is visually estimated at 50-55 %. Right Ventricle The right ventricle is normal in size and function. Right Atrium The right atrium is normal in size. Left Atrium The left atrium is normal in size. Mitral Valve Structurally normal mitral valve. There is mild mitral regurgitation. Aortic Valve Structurally normal aortic valve without significant sclerosis or stenosis. There is no aortic regurgitation. Tricuspid Valve Structurally normal tricuspid valve without significant stenosis. Pulmonary artery systolic pressure is normal. Pulmonic Valve Structurally normal pulmonic valve without significant stenosis. There is no pulmonic regurgitation. Pericardium Normal pericardium without effusion. Aorta Normal aortic root dimension. CONCLUSIONS Normal left ventricular dimension and systolic function Previewed by: Dr. Edmond Chilel MD (Electronically Signed) Final Date: 05 October 2021 11:42
--- NOTE | 2021-10-05 13:27 | P.PN ---
Subjective Progress Note Date: 10/05/21 Principal diagnosis: syncope Patient did not have any further episodes of syncope. Still having headaches but now better. No fevers or chills. No sob. Objective - Vital Signs Vital signs: Vital Signs Temp 97.8 F 10/05/21 07:00 Pulse 61 10/05/21 08:00 Resp 18 10/05/21 08:00 BP 136/83 10/05/21 07:00 Pulse Ox 98 10/05/21 07:00 FiO2 Intake & Output 10/04/21 10/05/21 10/05/21 18:59 06:59 18:59 Intake Total 120 480 Balance 120 480 Weight 63.503 kg Intake: Oral 120 480 Other: Voiding Method Toilet Toilet Toilet # Voids 2 - Exam Constitutional: No acute distress, conversant, pleasant Eyes:Anicteric sclerae, moist conjunctiva, no lid-lag, PERRLA, ENMT: Oropharynx clear, no erythema, exudates Neck: Supple, FROM, no masses, or JVD, No carotid bruits, No thyromegaly Lungs: Clear to auscultation, Clear to percussion, Normal respiratory effort, no accessory muscle use Cardiovascular: Heart regular in rate and rhythm, No murmurs, gallops, or rubs, No peripheral edema Abdominal: Soft, Nontender, no guarding, rebound or rigidity, Normoactive bowel sounds, No hepatomegaly, No splenomegaly, No palpable mass Skin: Normal temperature, tone, texture, turgor, no induration, No subcutaneous nodules, No rash, lesions, No ulcers Extremities: No digital cyanosis, No clubbing, Pedal pulses intact and symme trical, Radial pulses intact and symmetrical, No calf tenderness Psychiatric: Alert and oriented to person, place and time, appropriate affect, intact judgement Neuro: Muscles Strength 5/5 in all 4 extremities, Sensation to light touch grossly present throughout, Cranial nerves II-XII grossly intact, no focal sensory deficits - Labs CBC & Chem 7: 10/05/21 06:10 10/05/21 06:10 Labs: Abnormal Lab Results - Last 24 Hours (Table) 10/04/21 10/05/21 10/05/21 Range/Units 14:24 06:10 06:10 WBC 3.73 L (4.50-10.00) X 10*3/uL RBC 3.84 L (4.10-5.20) X 10*6/uL Hgb 11.8 L (12.0-15.0) g/dL MCV 97.1 H (80.0-97.0) fL MCHC 31.6 L (32.0-37.0) g/dL Neutrophils # 1.49 L (1.80-7.70) X 10*3/uL Chloride 109 H (98-107) mmol/L Anion Gap 8.50 L (10.00-18.00) mmol/L BUN 18 H (7-17) mg/dL Calcium 10.8 H (8.4-10.2) mg/dL Total Bilirubin 0.20 L (0.30-1.20) mg/dL Total Protein 5.6 L (6.2-8.2) g/dL Assessment and Plan Plan: Headaches migraine type new onset Head CT and head/neck CTA reviewed Brain mri and EEG pending D/w neuro Symptomatic management Syncope X2 Seen by neuro, work up as above Tele Neck mass CT soft tissues Smoking Advised to quit
[2021-10-05 13:36] VITALS: BP 118/86; PULSE 64; TEMP 98.7
[2021-10-05] MEDS ORDERED: NICOTINE 14MG/24HR PATCH TRANSDERM SCH (14:45)
--- NOTE | 2021-10-05 15:39 | CT ---
EXAMINATION TYPE: CT soft tissue neck w con DATE OF EXAM: 10/05/2021 COMPARISON: HISTORY: left neck mass CT DLP: 401.40 mGycm CONTRAST: Patient injected with 70 mL of Isovue 300. TECHNIQUE: Axial images at 3 mm thick sections. Reconstructed images in the coronal plane and sagitt al plane are reviewed. FINDINGS: Limited CT sections are obtained the lung apices. The lung apices appear clear. CT neck: The torus tubarius and fossa of Rosenmuller are normal. Punch Out Crew Member spaces are normal. Para nasal sinuses and mastoid air cells are clear. Parotid glands appear normal and symmetrical. Submandibular glands, are normal. Parapharyngeal spac es are normal. No suspicious adenopathy is evident. There is some vague asymmetry through the tonsillar pillars with fullness on the right compared to th e left. This is effacing the lateral right hypopharynx. Direct visualization is recommended. Example image series 3 image 60. The hypopharynx appears within normal limits. Vocal cord level appear symmetrical. Thyroid as visualized is normal. A small BB alfred an area on the left lateral neck nearly to the acromioclavicular junction on the lef t. No suspicious underlying abnormality is evident. Osseous structures are normal. IMPRESSIONS: 1. Subtle asymmetric to the tonsillar pillars with fullness on the right compared to the left. Direct visualization is recommended. 2. Suspicious underlying mass is not otherwise evident.
[2021-10-05 16:53] LABS: C Reactive Protein <0.30 mg/dL (0.00-0.80)
--- NOTE | 2021-10-05 19:20 | EEG ---
ELECTROENCEPHALOGRAM REPORT DATE OF SERVICE: 10/05/2021 CLINICAL HISTORY: This is a 55-year-old woman who had reported two syncopal episodes at home. The video EEG is obtained to evaluate for seizure epileptiform activity. RELEVANT MEDICATION: The patient is not on any antiepileptic drugs. EEG TYPE: Routine 21 channel EEG is performed with video using the 10/20 electrode placement system. DESCRIPTION: Wakefulness and drowsiness are obtained. During awake state the posterior- dominant rhythm consists of low to moderate voltage of 9.5-10 hertz activity that is well modulated sustained. There is no physiological stage 2 sleep architecture. There is no focal slowing. Interictal and ictal is none. ACTIVATION PROCEDURE: Photic stimulation did not evoke a posterior driving response. There is no abnormality during the photic stimulation. Hyperventilation is not performed. CLINICAL INTERPRETATION: This is a normal routine EEG. There is no focal slowing, epileptiform discharge or seizure on the EEG. Clinical correlation is recommended NEIL / LUIS EDUARDON: [id number] / MTDD
[2021-10-05] MEDS ORDERED: TOPIRAMATE 25 MG TAB PO SCH (21:00)
--- NOTE | 2021-10-06 08:13 | P.DS ---
Providers Date of admission: 10/04/21 17:16 Expected date of discharge: 10/06/21 Attending physician: Yaritza Vega, DO Consults: 10/04/21 17:18 Consult Physician Routine Consulting Provider: Osiel Samayoa Consult Reason/Comments: migraine Do you want consulting provider notified?: Yes Primary care physician: Stated None Hospital Course: 55-year-old female presenting to the emergency Department with headache. Onset of symptoms was around 10 days ago. Headache is diffuse, involving all of the head. It is dull, throbbing at times. Pain is associated with dizziness, feeli ng off balance, photophobia, tinnitus, blurred vision. Patient also reported loss of consciousness 2. She found herself on the floor without knowing how long she passed out for. She lives alone. Patient does have nausea and has vomited several times. No history of chronic headaches. In addition she noticed that she was having a mass on the left side of her posterior neck for the last [address] head and CT angio of the head and neck done in the ER were both negative. Labs unremarkable, she was admitted for further evaluation and management. Patient was monitored on telemetry, she had an echocardiogram as part of stroke workup came back unremarkable. She had a computed tomography scan of the soft tissue of the neck that did not reveal any masses. Patient was seen by neurology also wanted an MRI of the brain done. However patient decided to leave AGAINST MEDICAL ADVICE despite persuasion to stay. Time for discharge 35 min Patient Condition at Discharge: Stable Plan - Discharge Summary Discharge Rx Participant: No New Discharge Prescriptions: No Action Albuterol Sulfate [Proair Hfa] 1 - 2 puff INHALATION RT-Q4H PRN PRN Reason: Shortness Of Breath Albuterol Nebulized [Ventolin Nebulized] 2.5 mg INHALATION RT-Q4H PRN PRN Reason: Shortness Of Breath Acetaminophen Tab [Tylenol Tab] 1,000 mg PO Q6HR PRN PRN Reason: Pain Or Fever > 100.5 Discharge Medication List Acetaminophen Tab [Tylenol Tab] 1,000 mg PO Q6HR PRN 10/04/21 [History] Albuterol Nebulized [Ventolin Nebulized] 2.5 mg INHALATION RT-Q4H PRN 10/04/21 [History] Albuterol Sulfate [Proair Hfa] 1 - 2 puff INHALATION RT-Q4H PRN 10/04/21 [History] Follow up Appointment(s)/Referral(s): None,Stated [Primary Care Provider] - 1-2 days Discharge Disposition: Left Against Medical Advice
== END 2021-10-05 19:21 | disposition left against medical advice (07) | DRG 103 ==
LOC: EC 13:17 → 6NMEDSUR 16:52 → OBSVTOIN 17:16
PROVIDERS: ADMIT Internal Medicine; ATTEND Internal Medicine
DX: G43.909 Migraine, unspecified, not intractable, without status migrainosus (principal); F31.9 Bipolar disorder, unspecified; Z28.310 Unvaccinated for COVID-19; R55 Syncope and collapse; J45.909 Unspecified asthma, uncomplicated; F41.9 Anxiety disorder, unspecified; F17.210 Nicotine dependence, cigarettes, uncomplicated; Z71.6 Tobacco abuse counseling; Z60.2 Problems related to living alone; Z88.6 Allergy status to analgesic agent; Z82.49 Family history of ischemic heart disease and other diseases of the circulatory system
CPT/HCPCS: 36415; 70450; 70491; 70496; 70498; 71046; 80053; 81003; 83735; 84443; 84484; 85025; 85610; 85652; 85730; 86140; 93005; 93306; 95816; 96374; 96375; 99285

== ENCOUNTER 2023-03-30 14:33 | Emergency (ER) | payer OTHER ==
[2023-03-30 14:54] VITALS: TEMP 96.8
[2023-03-30] MEDS ORDERED: NICOTINE 21MG/24HR PATCH TRANSDERM STA (16:57)
[2023-03-30 17:26] LABS: Appearance,Urine Clear (Clear); Bilirubin,Urine Negative (Negative); Blood,Urine Negative (Negative); Color,Urine Colorless; Glucose,Urine (UA) Negative (Negative); Ketones,Urine Negative (Negative); Leukocyte Esterase,Urine Negative (Negative); Nitrite,Urine Negative (Negative); Protein,Urine Negative (Negative); Specific Gravity,Urine 1.008 (1.001-1.035); Urobilinogen,Urine <2.0 mg/dL (<2.0)
--- NOTE | 2023-03-30 17:30 | ED ---
General Adult HPI - General Chief complaint: Psychiatric Symptoms Stated complaint: mental health Time Seen by Provider: 03/30/23 15:00 Source: patient, RN notes reviewed Mode of arrival: ambulatory Limitations: no limitations - History of Present Illness Initial comments: 57-year-old female presents to the emergency department for suicidal ideation. She denies suicide plan. Patient also admits that she has been getting irritated by her upstairs neighbor and feels homicidal towards them. She states it has been going on for the past few days. She does have an extensive psychiatric history but has not been on her medications for around one year. She has been hospitalized for mental health in the past. Denies hallucinations, delusions. She does admit to occasional headaches which have been worked up by her primary care provider extensively including CT scan. - Related Data Home Medications Medication Instructions Recorded Confirmed Acetaminophen Tab [Tylenol Tab] 500 mg PO TID 10/04/21 03/30/23 Allergies Allergy/AdvReac Type Severity Reaction Status Date / Time aspirin Allergy Anaphylaxis Verified 03/30/23 19:09 ibuprofen [From Motrin] Allergy Anaphylaxis Verified 03/30/23 19:09 naproxen Allergy Anaphylaxis Verified 03/30/23 19:09 Review of Systems ROS Statement: Those systems with pertinent positive or pertinent negative responses have been documented in the HPI. ROS Other: All systems not noted in ROS Statement are negative. Past Medical History Additional Past Medical History / Comment(s): kidney stones History of Any Multi-Drug Resistant Organisms: None Reported Past Surgical History: Section, Hysterectomy, Tubal Ligation Additional Past Surgical History / Comment(s): 14 laproscopies Past Psychological History: Bipolar Smoking Status: Current every day smoker Past Alcohol Use History: Occasional Past Drug Use History: None Reported General Exam Limitations: no limitations General appearance: alert, in no apparent distress Head exam: Present: atraumatic, normocephalic, normal inspection Eye exam: Present: normal appearance, PERRL, EOMI. Absent: scleral icterus, conjunctival injection, periorbital swelling ENT exam: Present: normal exam, mucous membranes moist Neck exam: Present: normal inspection. Absent: tenderness, meningismus, lymphadenopathy Respiratory exam: Present: normal lung sounds bilaterally. Absent: respiratory distress, wheezes, rales, rhonchi, stridor Cardiovascular Exam: Present: regular rate, normal rhythm, normal heart sounds. Absent: systolic murmur, diastolic murmur, rubs, gallop, clicks GI/Abdominal exam: Present: soft, normal bowel sounds. Absent: distended, tende rness, guarding, rebound, rigid Extremities exam: Present: normal inspection, full ROM, normal capillary refill. Absent: tenderness, pedal edema, joint swelling, calf tenderness Back exam: Present: normal inspection Neurological exam: Present: alert, oriented X3 Psychiatric exam: Present: flat affect Skin exam: Present: warm, dry, intact, normal color. Absent: rash Course Vital Signs 03/30/23 03/30/23 14:35 20:49 Temperature 96.8 F L Pulse Rate 90 67 Respiratory 16 18 Rate Blood Pressure 184/100 139/89 O2 Sat by Pulse 97 97 Oximetry Medical Decision Making - Medical Decision Making Was pt. sent in by a medical professional or institution (FERNANDO Lentz, PATENT SOLICITOR, urgent care, hospital, or [facility]...) When possible be specific @ -No Did you speak to anyone other than the patient for history (EMS, parent, family, police, friend...)? What history was obtained from this source @ -No Did you review nursing and triage notes (agree or disagree)? Why? @ -I reviewed and agree with nursing and triage notes Were old charts reviewed (outside hosp., previous admission, EMS record, old EKG, old radiological studies, urgent care reports/EKG's, [facility] records)? Report findings @ -No old charts were reviewed Differential Diagnosis (chest pain, altered mental status, abdominal pain women, abdominal pain men, vaginal bleeding, weakness, fever, dyspnea, syncope, headache, dizziness, GI bleed, back pain, seizure, CVA, palpatations, mental health, musculoskeletal)? @ -Differential Mental Health Depression, anxiety, bipolar, psychosis, schizophrenia, borderline personality, situational depression, adjustment disorder, behavioral disorder, brain tumor, malingering, substance abuse, encephalopathy, medication reaction, dementia, hypothyroidism, degenerative neurologic disorder, lupus.... This is not meant to be all-inclusive list EKG interpreted by me (3pts min.). @ -none X-rays interpreted by me (1pt min.). @ -None done CT interpreted by me (1pt min.). @ -None done U/S interpreted by me (1pt. min.). @ -None done What testing was considered but not performed or refused? (CT, X-rays, U/S, labs)? Why? @ -None What meds were considered but not given or refused? Why? @ -None Did you discuss the management of the patient with other professionals (professionals i.e. , PA, PATENT SOLICITOR, lab, RT, psych nurse, director social welfare, bar pointer, teacher, president and chief executive officer, family independence case manager)? Give summary @ -Management discussed with EPS ENEIDA Moss. Patient to be admitted to psychiatric unit. Was smoking cessation discussed for >3mins.? @ -No Was critical care preformed (if so, how long)? @ -No Were there social determinants of health that impacted care today? How? (Homelessness, low income, unemployed, alcoholism, drug addiction, transportation, low edu. Level, literacy, decrease access to med. care, [facility], rehab)? @ -No Was there de-escalation of care discussed even if they declined (Discuss DNR or withdrawal of care, Hospice)? DNR status @ -No What co-morbidities impacted this encounter? (DM, HTN, Smoking, COPD, CAD, Cancer, CVA, ARF, Chemo, Hep., AIDS, mental health diagnosis, sleep apnea, morbid obesity)? @ -None Was patient admitted / discharged? Hospital course, mention meds given and route, prescriptions, significant lab abnormalities, going to OR and other pertinent info. @ -Admitted. 57-year-old female presented to the emergency department for psychiatric evaluation after patient has been experiencing suicidal and homicidal ideation recently. She does have a strong psychiatric history and has been admitted in the past. Patient isn't having any physical symptoms at this time. Patient was cleared for EPS evaluation. EPS has evaluated the patient an inpatient treatment was recommended. Patient will be transferred for inpatient treatment. Case discussed with Dr. Sweeney. Undiagnosed new problem with uncertain prognosis? @ -No Drug Therapy requiring intensive monitoring for toxicity (Heparin, Nitro, Insulin, Cardizem)? @ -No Were any procedures done? @ -No Diagnosis/symptom? @ -suicidal ideation, homicidal ideation Acute, or Chronic, or Acute on Chronic? @ -acute Uncomplicated (without systemic symptoms) or Complicated (systemic symptoms)? @ -uncomplicated Side effects of treatment? @ -No Exacerbation, Progression, or Severe Exacerbation? @ -No Poses a threat to life or bodily function? How? (Chest pain, USA, MT, pneumonia, PE, COPD, DKA, ARF, appy, cholecystitis, CVA, Diverticulitis, Homicidal, Suicidal, threat to staff... and all critical care pts) @ -No - Lab Data Result diagrams: 03/30/23 19:19 03/30/23 19:19 Lab Results 03/30/23 03/30/23 03/30/23 Range/Units 17:03 19:19 19:19 WBC 5.9 (3.8-10.6) k/uL RBC 4.58 (3.80-5.40) m/uL Hgb 14.4 (11.4-16.0) gm/dL Hct 43.7 (34.0-46.0) % MCV 95.4 (80.0-100.0) fL MCH 31.4 (25.0-35.0) pg MCHC 32.9 (31.0-37.0) g/dL RDW 12.9 (11.5-15.5) % Plt Count 265 (150-450) k/uL MPV 7.9 Neutrophils % 51 % Lymphocytes % 41 % Monocytes % 4 % Eosinophils % 2 % Basophils % 1 % Neutrophils # 3.0 (1.3-7.7) k/uL Lymphocytes # 2.4 (1.0-4.8) k/uL Monocytes # 0.3 (0-1.0) k/uL Eosinophils # 0.1 (0-0.7) k/uL Basophils # 0.0 (0-0.2) k/uL Sodium 139 (137-145) mmol/L Potassium 4.1 (3.5-5.1) mmol/L Chloride 103 (98-107) mmol/L Carbon Dioxide 27 (22-30) mmol/L Anion Gap 9 mmol/L BUN 15 (7-17) mg/dL Creatinine 0.69 (0.52-1.04) mg/dL Est GFR (CKD-EPI)AfAm >90 (>60 ml/min/1.73 sqM) Est GFR (CKD-EPI)NonAf >90 (>60 ml/min/1.73 sqM) Glucose 125 H (74-99) mg/dL Calcium 11.4 H (8.4-10.2) mg/dL Total Bilirubin 0.3 (0.2-1.3) mg/dL AST 27 (14-36) U/L ALT 27 (4-34) U/L Alkaline Phosphatase 127 H (38-126) U/L Total Protein 7.3 (6.3-8.2) g/dL Albumin 4.5 (3.5-5.0) g/dL Urine Color Colorless Urine Appearance Clear (Clear) Urine pH 5.0 (5.0-8.0) Ur Specific [place] 1.008 (1.001-1.035) Urine Protein Negative (Negative) Urine Glucose (UA) Negative (Negative) Urine Ketones Negative (Negative) Urine Blood Negative (Negative) Urine Nitrite Negative (Negative) Urine Bilirubin Negative (Negative) Urine Urobilinogen <2.0 (<2.0) mg/dL Ur Leukocyte Esterase Negative (Negative) Urine Opiates Screen Detected H (NotDetected) Ur Oxycodone Screen Not Detected (NotDetected) Urine Methadone Screen Not Detected (NotDetected) Ur Barbiturates Screen Not Detected (NotDetected) U Tricyclic Antidepress Not Detected (NotDetected) Ur Phencyclidine Scrn Not Detected (NotDetected) Ur Amphetamines Screen Not Detected (NotDetected) U Methamphetamines Scrn Not Detected (NotDetected) U Benzodiazepines Scrn Detected H (NotDetected) Urine Cocaine Screen Not Detected (NotDetected) U Marijuana (THC) Screen Not Detected (NotDetected) SARS-CoV-2 (PCR) (Not Detectd) 03/30/23 Range/Units 19:19 WBC (3.8-10.6) k/uL RBC (3.80-5.40) m/uL Hgb (11.4-16.0) gm/dL Hct (34.0-46.0) % MCV (80.0-100.0) fL MCH (25.0-35.0) pg MCHC (31.0-37.0) g/dL RDW (11.5-15.5) % Plt Count (150-450) k/uL MPV Neutrophils % % Lymphocytes % % Monocytes % % Eosinophils % % Basophils % % Neutrophils # (1.3-7.7) k/uL Lymphocytes # (1.0-4.8) k/uL Monocytes # (0-1.0) k/uL Eosinophils # (0-0.7) k/uL Basophils # (0-0.2) k/uL Sodium (137-145) mmol/L Potassium (3.5-5.1) mmol/L Chloride (98-107) mmol/L Carbon Dioxide (22-30) mmol/L Anion Gap mmol/L BUN (7-17) mg/dL Creatinine (0.52-1.04) mg/dL Est GFR (CKD-EPI)AfAm (>60 ml/min/1.73 sqM) Est GFR (CKD-EPI)NonAf (>60 ml/min/1.73 sqM) Glucose (74-99) mg/dL Calcium (8.4-10.2) mg/dL Total Bilirubin (0.2-1.3) mg/dL AST (14-36) U/L ALT (4-34) U/L Alkaline Phosphatase (38-126) U/L Total Protein (6.3-8.2) g/dL Albumin (3.5-5.0) g/dL Urine Color Urine Appearance (Clear) Urine pH (5.0-8.0) Ur Specific [place] (1.001-1.035) Urine Protein (Negative) Urine Glucose (UA) (Negative) Urine Ketones (Negative) Urine Blood (Negative) Urine Nitrite (Negative) Urine Bilirubin (Negative) Urine Urobilinogen (<2.0) mg/dL Ur Leukocyte Esterase (Negative) Urine Opiates Screen (NotDetected) Ur Oxycodone Screen (NotDetected) Urine Methadone Screen (NotDetected) Ur Barbiturates Screen (NotDetected) U Tricyclic Antidepress (NotDetected) Ur Phencyclidine Scrn (NotDetected) Ur Amphetamines Screen (NotDetected) U Methamphetamines Scrn (NotDetected) U Benzodiazepines Scrn (NotDetected) Urine Cocaine Screen (NotDetected) U Marijuana (THC) Screen (NotDetected) SARS-CoV-2 (PCR) Not Detected (Not Detectd) Disposition Clinical Impression: Suicidal ideation, Self-harm Disposition: TRANSFER TO PSYCH HOSP/UNIT Condition: Stable Is patient prescribed a controlled substance at d/c from ED?: No Referrals: Jyoti Crawford MD [Primary Care Provider] - 1-2 days
[2023-03-30 17:42] LABS: Amphetamine Screen,Urine Not Detected (NotDetected); Barbiturate Screen,Urine Not Detected (NotDetected); Benzodiazepines Screen,Urine Detected (NotDetected); Cocaine Screen,Urine Not Detected (NotDetected); Methadone Screen, Urine Not Detected (NotDetected); Opiate Screen,Urine Detected (NotDetected); Oxycodone Screen, Urine Not Detected (NotDetected); Phencyclidine Screen,Urine Not Detected (NotDetected); Tricyclic Antidepressant,Urine Not Detected (NotDetected); Urn Cannabinoid Scrn Not Detected (NotDetected)
[2023-03-30 19:53] LABS: Basophils % (A) 1 %; Eosinophils # (A) 0.1 k/uL (0-0.7); Eosinophils % (A) 2 %; HCT 43.7 % (34.0-46.0); HGB 14.4 gm/dL (11.4-16.0); Lymphocytes # (A) 2.4 k/uL (1.0-4.8); Lymphocytes % (A) 41 %; MCH 31.4 pg (25.0-35.0); MCHC 32.9 g/dL (31.0-37.0); MCV 95.4 fL (80.0-100.0); Mean Platelet Volume 7.9; Monocytes # (A) 0.3 k/uL (0-1.0); Monocytes % (A) 4 %; Neutrophils % (A) 51 %; Platelet Count 265 k/uL (150-450); RBC 4.58 m/uL (3.80-5.40); RDW 12.9 % (11.5-15.5); WBC 5.9 k/uL (3.8-10.6)
[2023-03-30 20:01] LABS: ALT 27 U/L (4-34); AST 27 U/L (14-36); African American GFR (CKD) >90 (>60 ml/min/1.73 sqM); Albumin 4.5 g/dL (3.5-5.0); Alkaline Phosphatase 127 U/L (38-126); Anion Gap 9 mmol/L; Blood Urea Nitrogen 15 mg/dL (7-17); Calcium 11.4 mg/dL (8.4-10.2); Carbon Dioxide 27 mmol/L (22-30); Chloride 103 mmol/L (98-107); Glucose 125 mg/dL (74-99); Non-African American GFR(CKD) >90 (>60 ml/min/1.73 sqM); Potassium 4.1 mmol/L (3.5-5.1); Sodium 139 mmol/L (137-145); Total Bilirubin 0.3 mg/dL (0.2-1.3); Total Protein 7.3 g/dL (6.3-8.2)
[2023-03-30 21:01] VITALS: BP 139/89; PULSE 67; RESP 18
== END 2023-03-31 01:52 ==
LOC: EC 14:33
DX: R45.851 Suicidal ideations (principal); F17.200 Nicotine dependence, unspecified, uncomplicated; Z86.59 Personal history of other mental and behavioral disorders; Z88.6 Allergy status to analgesic agent; Z88.8 Allergy status to other drugs, medicaments and biological substances; Z20.822 Contact with and (suspected) exposure to COVID-19
CPT/HCPCS: 82075; 36415; 80053; 85025; 81003; 80306; 87635; 99285; S4990